=== PATIENT | female | born 1995 | race African-American/Black ===

== ENCOUNTER 2016-12-30 22:07 | Emergency (ER) | payer OTHER ==
[~2016-12-30] VITALS: Ht 152.4 cm; Wt 74.8 kg
[~2016-12-30 22:07] MED LIST: NAPR500T8 PO
[2016-12-30 22:29] VITALS: BP 117/60
--- NOTE | 2016-12-30 23:09 | PHYS DOC ---
General Chief Complaint: ANKLE PROBLEM Stated Complaint: FALL,LEFT LEG Time Seen by MD: 22:57 Source: patient Problems: History of Present Illness Initial Comments Patient here complaining of left knee and ankle pain. Patient apparently slipped down some wooden steps when she was wearing socks about 45 minutes prior to arrival in the ED. She did not hit her head. There is no loss of consciousness seizure activity or incontinence. She has left ankle pain and left knee pain. She says she had to scoot her way down the steps and was able to minimally weight-bear afterwards. She was using a crutch at home and used a crutch to get herself to the [facility], [place]. As noted, most of her pain now is over the medial aspect of the left ankle. She has some mild pain over the anterior and medial aspect of the left knee as well. There is no distal complaints of weakness numbness or tingling within the foot or toes. There is no other injuries noted or reported. She denies any headache. There is no neck or back pain. There is no speech or vision changes. There's no chest pain shortness of breath nausea vomiting. She has no abdominal pain. Is no change amount or bladder habits. She denies any back pain. There is no other focal extremity or neurologic complaints except as described. Patient's past medical history is remarkable for anxiety and depression's. She takes medication accordingly. She uses electronic cigarettes. She is a nonuser of ethanol. Allergies: Coded Allergies: acetaminophen (Verified Allergy, Severe, 11/16/16) hydrocodone (Verified Allergy, Severe, 11/16/16) banana (Verified Allergy, Intermediate, rash, tongue swelling, 10/01/15) Penicillins (Verified Allergy, Unknown, 11/16/16) Past Medical History Surgical History: noncontributory Psychosocial History: anxiety, depression Social History Smoker: other Alcohol: none Review of Systems All Other Systems: Reviewed and Negative Physical Exam General Appearance: WD/WN, no apparent distress Extremities: other Neurologic/Psychiatric: no motor/sensory deficits, alert, normal mood/affect, oriented x 3 Skin: normal color Comments Generally this a well-developed well-nourished black female in no acute distress. Vitals are as noted. Pertinent findings on physical exam shows the left knee is not swollen. There is no effusion or ballottement. The joint lines are stable in all planes. She is mildly tender over the medial joint line and somewhat more so over the popliteal region. There is no signs of trauma. The tibia and fibula appear grossly intact. There is no tenderness or deformity or signs of trauma. Over the left ankle, she has some mild to moderate tenderness over the medial malleolus and mild tenderness over the lateral malleolus. There is no gross swelling or deformity noted. The ankle joint is stable in all planes. There are no distal foot or toe motor, sensory, vascular deficits noted. Patient is awake alert and cooperative. Remainder of physical exam is clinically unremarkable. Orders, Labs, Meds Old charts note multiple prior ER visits for variety of issues. This is her fourth visit this year alone. She's been seen on several occasions for abdominal pain, menorrhagia, migraine headaches, PID, ankle injury, and feared complaint. X-rays of the left knee and left ankle show no acute fracture dislocation per the emergency physician. 2300 Patient resting in the ED. I discussed with them most likely diagnosis of mild knee and ankle sprains. We'll go ahead and give her an Aircast for ankle, as that seems to be the most severe of her complaints, as well as an Santhosh wrap for the knee. She does have a crutch to help her get around at home. She did drive herself here but we can give her some Naprosyn prior to discharge. I will write a prescription for the same. I advised on further home care including rest , ice, elevation, and weightbearing as tolerated. 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 I will give her a work excuse for tomorrow and Wednesday. She voices understanding of the need to follow-up with primary care or return to the ER sooner as needed if worsen anyway. She looks well, in no acute distress, okay for discharge home at this time. LINCOLN CHEATHAM MD Dec 30, 2016 23:09
[2016-12-30] MEDS ORDERED: NAPROXEN 500 MG TABLET PO ONE (23:30)
--- NOTE | 2016-12-31 08:36 | RAD ---
Left knee with patella, 4 views, 12/30/2016: History: Knee pain, injury No fracture or dislocation is identified. No joint effusion is evident. IMPRESSION: No acute left knee abnormality is detected.
--- NOTE | 2016-12-31 08:40 | RAD ---
Left ankle, 3 views, 12/30/2016: History: Ankle pain, injury No fracture or dislocation is identified. The soft tissues are unremarkable. IMPRESSION: No acute left ankle abnormality is detected.
== END 2016-12-30 23:40 | disposition home or self-care (01) ==
LOC: ER 22:07
DX: M25.572 Pain in left ankle and joints of left foot (principal); M25.562 Pain in left knee; F17.210 Nicotine dependence, cigarettes, uncomplicated; Z88.6 Allergy status to analgesic agent; Z88.0 Allergy status to penicillin; Z91.018 Allergy to other foods; W10.8XXA Fall (on) (from) other stairs and steps, initial encounter; Y93.89 Activity, other specified; Y99.8 Other external cause status; Y92.89 Other specified places as the place of occurrence of the external cause
CPT/HCPCS: 29515; 73564; 73610; 99284-25

== ENCOUNTER 2017-09-19 10:39 | Emergency (ER) | payer OTHER ==
[2017-09-19 10:45] VITALS: BP 129/75
--- NOTE | 2017-09-19 11:06 | PHYS DOC ---
General Chief Complaint: MECHANICAL FALL Stated Complaint[facility] Time Seen by MD: 10:48 Source: patient Exam Limitations: no limitations Problems: History of Present Illness Initial Comments Patient is a 22-year-old female 36 weeks gestation no risk factors complaining of fall injury. Patient states that she slipped on the ice this morning and fell to her left hip. She did not hit her head or lose consciousness she denies headache or neck pain. She has continued to feel the baby move, she denies any vaginal discharge or bleeding and has felt no new contractions. She says she just feels like she has some bruises and denies any serious injuries for herself she just wanted to make sure that her baby is okay. heart tones were measured by the RN and were reassuring see nurse's notes. She follows with an obstetrics group and plans to deliver at [place]. Occurred: this morning Severity: mild Injuries/Pain Location: other Context: slipped Loss of Consciousness: no loss of consciousness Modifying Factors: worse with jarring, worse with movement, improves with rest Associated Symptoms: other Allergies: Coded Allergies: acetaminophen (Verified Allergy, Severe, 11/16/16) hydrocodone (Verified Allergy, Severe, 11/16/16) banana (Verified Allergy, Intermediate, rash, tongue swelling, 10/01/15) Penicillins (Verified Allergy, Unknown, 11/16/16) Past Medical History Medical History: no medical history Surgical History: noncontributory LMP (Females 10-50): Social History Smoker: non-smoker Alcohol: none Drugs: none Review of Systems Constitutional: denies chills, denies diaphoresis, denies fever, denies malaise Eyes: denies blindness, denies blurred vision, denies photophobia Ears, Nose, Mouth, Throat: denies ear pain, denies ear discharge, denies nose pain Respiratory: denies cough, denies shortness of breath, denies wheezing Cardiovascular: denies chest pain, denies palpitations, denies syncope Gastrointestinal: denies abdominal pain, denies diarrhea, denies nausea, denies vomiting Genitourinary: denies dysuria, denies frequency, denies hematuria Musculoskeletal: see HPI, denies back pain, denies joint swelling, denies neck pain Physical Exam General Appearance: WD/WN, no apparent distress Head: no evidence of injury Ears, Nose, Mouth, Throat: hearing grossly normal, no evidence of ENT injury Neck: non-tender, full range of motion Cardiovascular/Respiratory: normal peripheral pulses, no respiratory distress Gastrointestinal: soft (gravid consistent with dates) Genital/Rectal: other (deferred) Back: no CVA tenderness, no vertebral tenderness Extremities: no evidence of injury, normal range of motion, non-tender, no pedal edema, pelvis stable Neurologic/Psychiatric: director of public relations II-XII nml as tested, no motor/sensory deficits, alert, normal mood/affect, oriented x 3 Skin: normal color, warm/dry [place] Coma Score Best Eye Response: (4) open spontaneously Best Verbal Response: (5) oriented Best Motor Response: (6) obeys commands Nestor Total: 15 Orders, Labs, Meds The patient was reassured. I offered her a period of observation to stay in the emergency department which was declined. She has reassuring heart tones and her fall was minimal no emergent condition exists. I discussed over-the- counter medications I discussed signs and symptoms to monitor as well as indications for urgent return to the department. 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 Departure Time of Disposition: 11:04 Disposition: 01 HOME, SELF-CARE Diagnosis: mechanical fall, incidental Condition: GOOD Patient Instructions: Fall Prevention and Home Safety, [id number], Medicines During Additional Instructions: Please review the patient education materials given by ED staff. Have someone saw your driveway or take other measures to remove the ice. [id number] Tylenol as needed. Ice to painful areas as discussed. Off work tomorrow if needed. Contact your shop teacher tomorrow to notify the mother fall, follow-up with them as scheduled. Return to ED with new or changing symptoms. CHUCK SCHMITZ DO Sep 19, 2017 11:06
== END 2017-09-19 11:10 | disposition home or self-care (01) ==
LOC: ER 10:39
DX: O9A.213 Injury, poisoning and certain other consequences of external causes complicating pregnancy, third trimester (principal); Z3A.36 36 weeks gestation of pregnancy; Z88.6 Allergy status to analgesic agent; Z88.5 Allergy status to narcotic agent; Z88.0 Allergy status to penicillin; Z91.018 Allergy to other foods; W00.0XXA Fall on same level due to ice and snow, initial encounter; Y93.89 Activity, other specified; Y99.8 Other external cause status; Y92.89 Other specified places as the place of occurrence of the external cause
CPT/HCPCS: 99281